=== PATIENT | female | born 1985 | race Caucasian/White ===

== ENCOUNTER 2017-02-09 02:54 | Inpatient (IN) | payer OTHER ==
[2017-02-09] MEDS ORDERED: Sodium Citrate/Citric Acid* 15 ML UDC ONE (03:16)
[2017-02-09] MEDS ORDERED: ceFOXitin 2 GM IVPREMIX* 2 GM/50 ML BAG ONE (03:16)
[2017-02-09 03:23] LABS: Hematocrit 36 % (35-47); Hemoglobin 12.6 g/dl (12.0-16.0); Mean Corpuscular HGB Conc 35 g/dl (31-36); Mean Corpuscular Hemoglobin 30 pg (27-31); Mean Corpuscular Volume 86 fL (80-97); Mean Platelet Volume 9 um3 (7.4-10.4); Red Blood Count 4.24 10^6/ul (4.0-5.4); Red Cell Distribution Width 13 % (10.5-15); White Blood Count 12.8 10^3/ul (3.5-10.8)
[2017-02-09] MEDS ORDERED: Acetaminophen IV 1GM/100ML * 100 ML IVPB ONE (05:09)
[2017-02-09] MEDS ORDERED: oxyCODONE TAB* 5 MG TAB PO PRN ×2 (05:09→05:12)
[2017-02-09] MEDS ORDERED: PROCHLORPERAZINE INJ 5 MG/ML 2 ML VIAL IV PRN ×2 (05:09→05:12)
[2017-02-09] MEDS ORDERED: fentaNYL* 50 MCG/ML 2 ML VIAL (100 MCG VIAL) IV PRN (05:09)
[2017-02-09] MEDS ORDERED: Famotidine IV* 10 MG/ML 2 ML (20 mg) IV SLOW PU PRN (05:11)
[2017-02-09] MEDS ORDERED: Zolpidem TAB* 5 MG PO PRN (05:12)
[2017-02-09] MEDS ORDERED: Dibucaine 1% 28.35 GM TUBE PR PRN (05:12)
[2017-02-09] MEDS ORDERED: Glycerin ADULT SUPP PR PRN (05:12)
[2017-02-09] MEDS ORDERED: Witch Hazel PAD* JAR TOPICAL PRN (05:12)
[2017-02-09] MEDS ORDERED: Nalbuphine* 20 MG/ML 1 ML VIAL IV PRN (05:12)
[2017-02-09] MEDS ORDERED: Naloxone* 0.4 MG/ML 1 ML VIAL IV PRN (05:12)
[2017-02-09] MEDS ORDERED: Ondansetron INJ* 2 MG/ML VIAL IV PRN (05:12)
[2017-02-09] MEDS ORDERED: Famotidine IV* 10 MG/ML 2 ML (20 mg) ONE (05:14)
[2017-02-09] MEDS ORDERED: Ketorolac INJ* 30 MG/ML 1 ML VIAL ONE (05:14)
[2017-02-09] MEDS ORDERED: Acetaminophen IV 1GM/100ML * 100 ML ONE (05:15)
[2017-02-09] MEDS ORDERED: Ketorolac INJ* 30 MG/ML 1 ML VIAL IV SCH (06:00)
[2017-02-09] MEDS ORDERED: Oxytocin in LR* 20 UNITS/1,000 ML BAG IVPB SCH (06:00)
[2017-02-09] MEDS ORDERED: diPHENhydraMINE IV* 50 MG/ML 1 ml VIAL (BENADRYL) ONE (06:47)
[2017-02-09] MEDS: Docusate CAP* 100 MG PO SCH ×3 (09:11→19:42)
[2017-02-09] MEDS: Simethicone CHEW TAB* 80 MG PO SCH ×4 (09:11→19:42)
[2017-02-09] MEDS: diPHENhydraMINE PO* 25 MG PO PRN ×2 (12:24→19:41)
[2017-02-09] MEDS: Ketorolac INJ* 30 MG/ML 1 ML VIAL IV SCH ×3 (13:24→21:36)
[2017-02-09] MEDS: Acetaminophen TAB* 325 MG PO SCH ×3 (13:25→21:36)
[2017-02-09] MEDS ORDERED: oxyCODONE/Acetamin 5/325 MG* TAB PO PRN (21:12)
[2017-02-09] MEDS ORDERED: Acetaminophen TAB* 325 MG PO PRN (21:12)
--- NOTE | 2017-02-09 23:33 | OP ---
DATE OF OPERATION: 02/09/17 - ROOM [facility] DATE OF : 81 SURGEON: Tyson Patel MD SENIOR RISK ANALYST: Juan Carlos Zavala MD ANESTHESIOLOGIST: Adeel Peralta MD ANESTHESIA: Spinal PRE-OP DIAGNOSIS: Previous section and desires permanent sterilization. POST-OP DIAGNOSIS: Previous section and desires permanent sterilization. OPERATIVE PROCEDURE: Low-transverse section and bilateral tubal ligation. ESTIMATED BLOOD LOSS: 600 cc. FINDINGS: Include a viable male, Apgars 9 and 9, and weight was 8 pounds and 12 ounces. Normal-appearing uterus, fallopian tubes, and ovaries. DESCRIPTION OF PROCEDURE: The patient identified and procedure identified as a low-transverse section. The patient was taken to the operating room, prepped and draped in the usual fashion in the left lateral recumbent position under spinal anesthesia. A Pfannenstiel incision was made through the old incision and carried down through fat, fascia, and peritoneum. A transverse incision was made in the lower uterine segment and extended laterally using the bandage scissors. The infant was delivered through the incision with ease. Nuchal cord x1 was noted. The cord was doubly clamped and cut and the was handed to the awaiting criminal attorney. Cord blood was obtained. Placenta delivered spontaneously. The uterine incision was closed using 0 Polysorb in a running fashion. A second layer was used to imbricate the first layer. The right fallopian tube was grasped at the fimbriated ends and ligated x2 and the fimbriae was excised. The same procedure was carried out on the left after following it out to its fimbriated end. Good hemostasis was verified. The uterus was placed back into the abdominal cavity. The incision sites were inspected and found to be hemostatic. The peritoneum was closed using 3-0 Polysorb in a running fashion. Good hemostasis was achieved in the subrectus layers. The fascia was closed using 0 Polysorb in a running fashion. Hemostasis was achieved in the subcu. Copious irrigation was utilized and suctioned out and the skin was closed with 4-0 Monocryl in a subcuticular fashion. All sponge and instrument counts were correct and the patient returned to the recovery room in stable condition. CC: Juan Carlos Zavala MD* [id number]/[facility] #: [id number] [facility]
[2017-02-10] MEDS: oxyCODONE/Acetamin 5/325 MG* TAB PO PRN ×2 (05:45→18:29)
[2017-02-10] MEDS ORDERED: diPHENhydraMINE IV* 50 MG/ML 1 ml VIAL (BENADRYL) IV ONE (06:45)
[2017-02-10] MEDS ORDERED: Ketorolac INJ* 30 MG/ML 1 ML VIAL IV ONE (07:00)
[2017-02-10 08:17] LABS: Hematocrit 32 % (35-47); Hemoglobin 10.8 g/dl (12.0-16.0); Mean Corpuscular HGB Conc 34 g/dl (31-36); Mean Corpuscular Hemoglobin 30 pg (27-31); Mean Corpuscular Volume 88 fL (80-97); Mean Platelet Volume 9 um3 (7.4-10.4); Red Blood Count 3.61 10^6/ul (4.0-5.4); Red Cell Distribution Width 13 % (10.5-15); White Blood Count 15.2 10^3/ul (3.5-10.8)
[2017-02-10] MEDS: Simethicone CHEW TAB* 80 MG PO SCH ×4 (08:41→21:20)
[2017-02-10] MEDS: Docusate CAP* 100 MG PO SCH ×3 (08:41→21:20)
[2017-02-10] MEDS ORDERED: Ferrous Gluconate TAB* 324 MG TAB PO SCH (09:00)
[2017-02-10] MEDS: Ibuprofen TAB* 600 MG PO PRN ×2 (12:49→18:29)
[2017-02-11] MEDS: oxyCODONE/Acetamin 5/325 MG* TAB PO PRN ×2 (01:16→10:09)
[2017-02-11] MEDS: Ibuprofen TAB* 600 MG PO PRN ×2 (01:18→07:59)
[2017-02-11] MEDS: Docusate CAP* 100 MG PO SCH (07:58)
[2017-02-11] MEDS: Simethicone CHEW TAB* 80 MG PO SCH (07:58)
[2017-02-11 08:05] VITALS: BP 121/72
== END 2017-02-11 11:40 | disposition home or self-care (01) | DRG 540 ==
LOC: MCHOBOUT 02:54 → MCHOB 03:07
PROVIDERS: ADMIT Obstetrics & Gynecology; ATTEND Obstetrics & Gynecology
PROC: 0UB70ZZ Excision of Bilateral Fallopian Tubes, Open Approach (ICD-10-PCS; 2017-02-09)
PROC: 10D00Z1 Extraction of Products of Conception, Low, Open Approach (ICD-10-PCS; principal; 2017-02-09 03:57)
DX: O34.211 Maternal care for low transverse scar from previous cesarean delivery (principal); Z37.0 Single live birth; Z3A.38 38 weeks gestation of pregnancy
CPT/HCPCS: 36415; 85025; 85027; 86850; 86900; 86901; 88302; A9270-GY; J0694; J1200; J1885; J2300

== ENCOUNTER 2017-10-11 08:15 | Emergency (ER) | payer OTHER ==
[2017-10-11 08:33] VITALS: BP 120/68
--- NOTE | 2017-10-11 08:41 | UC ---
Dental HPI - HPI Summary HPI Summary: 3-4 DAYS OF RIGHT UPPER TOOTH PAIN. GETTING WORSE. HAS A KNOWN LARGE CAVITY THAT HAS NOT BEEN FILLED IN 1ST PREMOLAR. EVEN THE AIR MOVING PAST HER TOOTH MAKES IT HURT. CALLED DENTIST AND MADE APPT FOR 2 WEEKS (EARLIEST AVAILABLE). NO FEVER. IS . - History of Current Complaint Chief Complaint: UCDentalProblem Stated Complaint: TOOTH ACHE Time Seen by Provider: 10/11/17 08:39 Hx Obtained From: Patient Hx Last Menstrual Period: April 04 2016. Onset/Duration: Sudden Onset, Lasting Days, Still Present Severity: Moderate Pain Intensity: 8 Pain Scale Used: 0-10 Numeric Aggravating Factor(s): Heat, Cold, Chewing Alleviating Factor(s): OTC Meds - IBUPROFEN - Allergies/Home Medications Allergies/Adverse Reactions: Allergies Allergy/AdvReac Type Severity Reaction Status Date / Time No Known Allergies Allergy Verified 10/11/17 08:29 PMH/Surg Hx/FS Hx/Imm Hx GI/ History: Kidney Stones Other History Of: HIV Negative For: Hepatitis C - Surgical History Surgical History: Yes Surgery Procedure, Year, and Place: 04/04/2008 CYSTO LEFT STENT INSERTION, [facility] [place]. 04/12/2008 ESWL LEFT URETERAL CALCULUS, [facility] [place]. 12/2008 CYSTOSCOPY LEFT URETERAL STENT INSERTION, [facility] [place]. 09/2011 RIGHT URETEROSCOPY, RIGHT STENT, INSERTION, SHOCKWAVE LITHOTRIPSY LEFT RENAL CALCULUS, [facility] [place]. 2012 SKYE MOSS. 2013 LEFT URETERAL STENT, [facility] [place]. 07/26/2014 LEFT SHOCKWAVE LITHOTRIPSY, [facility] [place]. 2014 ISA [facility] [place]. gall bladder removal. 10/2012,SKYE 2014. 2013-URETERAL STENT INSERTION - Family History Known Family History: Positive: Hypertension, Diabetes, Other - kidney stones, leukemia - Social History Alcohol Use: None Substance Use Type: None Smoking Status (MU): Former Smoker Type: Cigarettes Amount Used/How Often: 1/2 PPD FOR ABOUT 5-6 YEARS Have You Smoked in the Last Year: No When Did the Patient Quit Smoking/Using Tobacco: 2010 - Immunization History Most Recent Influenza Vaccination: 08/20/16 Most Recent Tetanus Shot: 2012 Most Recent Pneumonia Vaccination: none Review of Systems Constitutional: Negative ENT: Dental Pain Respiratory: Negative Cardiovascular: Negative Gastrointestinal: Negative All Other Systems Reviewed And Are Negative: Yes Physical Exam Triage Information Reviewed: Yes Appearance: Well-Appearing, Well-Nourished, Pain Distress - MILD Vital Signs: Initial Vital Signs Temp 97.8 F 10/11/17 08:30 Pulse 69 10/11/17 08:30 Resp 16 10/11/17 08:30 BP 120/68 10/11/17 08:30 Pulse Ox 99 10/11/17 08:30 Vital Signs Reviewed: Yes Eyes: Positive: Conjunctiva Clear ENT: Positive: Hearing grossly normal, Pharynx normal Dental: Positive: Percussion Tenderness @ - RIGHT UPPER 1ST PREMOLAR, Gross Decay/Caries @ - RIGHT UPPER 1ST PREMOLAR Neck: Positive: Supple, Nontender, No Lymphadenopathy Respiratory Exam: Normal Cardiovascular Exam: Normal Abdomen Description: Positive: Soft Musculoskeletal: Positive: No Edema Neurological: Positive: Alert Psychological: Positive: Age Appropriate Behavior Skin: Negative: rashes Dental Complaint Course/Dx - Differential Dx/Diagnosis Provider Diagnoses: DENTAL INFECTION - RIGHT UPPER 1ST PREMOLAR Discharge - Discharge Plan Condition: Stable Disposition: HOME Prescriptions: Chlorhexidine MW 0.12% 473ML* [Peridex Mouth Wash 0.12%*] 15 ml SWISH SPIT BID # 1 bottle Ibuprofen TAB* [Motrin TAB* 600 MG] 1 tab PO Q6H PRN #30 tab PRN Reason: Pain Penicillin VK 500 MG TAB(NF) [Penicillin VK 500 mg Tab] 500 mg PO TID #30 tab Patient Education Materials: Toothache (ED) Referrals: Nadja Ramos MD [Primary Care Provider] - If Needed Additional Instructions: KEEP YOUR DENTAL APPT IN 2 WEEKS.
== END 2017-10-11 08:57 | disposition home or self-care (01) ==
LOC: UCEAST 08:15
DX: K04.7 Periapical abscess without sinus (principal); Z87.442 Personal history of urinary calculi; Z87.891 Personal history of nicotine dependence
CPT/HCPCS: 99212; G0463

== ENCOUNTER 2018-10-03 10:48 | Emergency (ER) | payer OTHER ==
[2018-10-03 11:42] VITALS: BP 109/77
--- NOTE | 2018-10-03 12:14 | UC ---
Dental HPI - HPI Summary HPI Summary: 33 y/o female presents to the urgent care c/o fracture molar in her left upper jaw about 1.5week. Now w/ some swelling and infection. Pt also states nasaql congestion w/ clear nasal discharge for the past 2 days which has exacerbated the dental pain w/ sinus pressure. Pt states she has an appt w/ [facility] in 2 weeks for extraction and treatment of her molar. However this morning pain is worse 6/10 w/ severe nausea. Pt took Ibuprofen PO 800mg around 0930AM today. She still breast feeding her 2 y/o son. Pt denies fever, trismus, BUENO, SOB, chest pain, abdominal pain, N/V/D. - History of Current Complaint Chief Complaint: UCDentalProblem Stated Complaint: TOOTHACHE Time Seen by Provider: 10/03/18 12:08 Hx Obtained From: Patient Hx Last Menstrual Period: 09/16/18 ?: No Onset/Duration: Gradual Onset, Lasting Weeks - 1 week, Still Present, Worse Since - today Severity: Moderate Pain Intensity: 6 Pain Scale Used: 0-10 Numeric Aggravating Factor(s): Chewing Alleviating Factor(s): OTC Meds Related History: Swelling, Other - fracture molar - Allergies/Home Medications Allergies/Adverse Reactions: Allergies Allergy/AdvReac Type Severity Reaction Status Date / Time No Known Allergies Allergy Verified 10/03/18 11:42 PMH/Surg Hx/FS Hx/Imm Hx Previously Healthy: Yes Respiratory History: Asthma - as a child Other History Of: HIV Negative For: Hepatitis C - Surgical History Surgical History: Yes Surgery Procedure, Year, and Place: 04/04/2008 CYSTO LEFT STENT INSERTION, [facility] [place]. 04/12/2008 ESWL LEFT URETERAL CALCULUS, [facility] [place]. 12/2008 CYSTOSCOPY LEFT URETERAL STENT INSERTION, [facility] [place]. 09/2011 RIGHT URETEROSCOPY, RIGHT STENT, INSERTION, SHOCKWAVE LITHOTRIPSY LEFT RENAL CALCULUS, [facility] [place]. 2012 SKYE MOSS. 2013 LEFT URETERAL STENT, [facility] [place]. 07/26/2014 LEFT SHOCKWAVE LITHOTRIPSY, [facility] [place]. 2014 ISA [facility] [place]. gall bladder removal. 10/2012,SKYE 2014. 2013-URETERAL STENT INSERTION - Family History Known Family History: Positive: Hypertension, Diabetes, Other - kidney stones, leukemia - Social History Occupation: Employed Full-time Lives: With Family Alcohol Use: None Substance Use Type: None Smoking Status (MU): Former Smoker Type: Cigarettes Amount Used/How Often: 1/2 PPD FOR ABOUT 5-6 YEARS Have You Smoked in the Last Year: No When Did the Patient Quit Smoking/Using Tobacco: 2010 - Immunization History Most Recent Influenza Vaccination: 08/20/16 Most Recent Tetanus Shot: 2012 Most Recent Pneumonia Vaccination: none Review of Systems All Other Systems Reviewed And Are Negative: Yes Constitutional: Positive: Negative Skin: Positive: Negative Eyes: Positive: Negative ENT: Positive: Dental Pain - left upper jaw w/ fracture molar and swelling, Nasal Discharge - clear, Sinus Congestion Respiratory: Positive: Negative Cardiovascular: Positive: Negative Gastrointestinal: Positive: Negative Genitourinary: Positive: Negative Motor: Positive: Negative Neurovascular: Positive: Negative Musculoskeletal: Positive: Negative Neurological: Positive: Negative Psychological: Positive: Negative Is Patient Immunocompromised?: No Physical Exam - Summary Physical Exam Summary: Vital Signs Reviewed: Yes General: Well-Appearing, Well-Nourished female sitting in the examining table w/ o any respiratory or pain distress Eyes: Positive: Conjunctiva Clear - PERRLA, EOMI, ENT: Positive: Normal ENT inspection, Hearing grossly normal, Pharynx normal, TMs normal - B/L external ear canals clear,. Negative: Tonsillar swelling, Tonsillar exudate, Trismus. Nose edematous and erythemaous nasal mucosa w/ clear nasal discharge Dental: Positive: Gross Decay/Caries w/ fracture molars #12 , Abscess @ - gingival swelling and erythema, tender to percussion above this molar. , Cervical Lymphadenopathy - anterior- Neck: Positive: Supple Respiratory: Positive: Chest non-tender, Lungs clear, Normal breath sounds, No respiratory distress Cardiovascular: Positive: RRR, No Murmur, Pulses Normal, Brisk Capillary Refill Abdomen Description: Positive: Nontender, No Organomegaly, Soft. Negative: CVA Tenderness (R), CVA Tenderness (L) Bowel Sounds: Positive: Present Musculoskeletal: Positive: Strength Intact, ROM Intact, No Edema Neurological Exam: Normal Psychological Exam: Normal Skin Exam: Normal Triage Information Reviewed: Yes Vital Signs: Initial Vital Signs Temp 98.0 F 10/03/18 11:36 Pulse 91 10/03/18 11:36 Resp 18 10/03/18 11:36 BP 109/77 10/03/18 11:36 Pulse Ox 98 10/03/18 11:36 Dental Complaint Course/Dx - Course Course Of Treatment: 33 y/o female presents to the urgent care c/o fracture molar in her left upper jaw about 1.5week. Now w/ some swelling and infection. Pt also states nasaql congestion w/ clear nasal discharge for the past 2 days which has exacerbated the dental pain w/ sinus pressure. Pt states she has an appt w/ [facility] in 2 weeks for extraction and treatment of her molar. However this morning pain is worse 6/10 w/ severe nausea. Pt took Ibuprofen PO 800mg around 0930AM today. She still breast feeding her 2 y/o son. Pt denies fever, trismus, BUENO, SOB, chest pain, abdominal pain, N/V/D. Hx obtained. Pt w/ a dental abscess and fracture molar #12 on examination. Pt w/ severe nausea. Pt givne Zofran PO and Viscous Lidocaine at the clinic by the nurse to alleviate symptoms. pt tolerated well medication and felt better. Pt Rx Amoxicillin PO and Ibuprofen PO for pain and Viscous Lidocaine, also Zofran PO prn to alleviate nausea. Pt strongly advised to f/u with Dentist as soon as possible further evaluation and treatment. Pt understood and agreed with plan of care. Left the clinic ambulating. - Differential Dx/Diagnosis Differential Diagnosis/Dx: Dental Abscess, Dental Caries, Fractured Tooth, Gingivitis, Odontogenic Pain, Peridontic Disease, Peritonsillar Abcess, Tonsillitis Provider Diagnosis: Dental abscess, Pain, dental, Fracture, tooth Discharge - Sign-Out/Discharge Documenting (check all that apply): Patient Departure - D/c home All imaging exams completed and their final reports reviewed: No Studies - Discharge Plan Condition: Stable Disposition: HOME Prescriptions: Amoxicillin PO (*) [Amoxicillin 875 MG (*)] 875 mg PO BID #20 tab Ibuprofen TAB* [Motrin TAB* 800 MG] 800 mg PO Q6H PRN #30 tab PRN Reason: dental pain Lidocaine 2% VISCOUS* [Xylocaine 2% Viscous*] 15 ml SWISH SPIT Q6H PRN #1 btl PRN Reason: dental pain Ondansetron ODT TAB* [Zofran 4 MG Odt TAB*] 4 mg PO Q6H PRN #12 tab.odt PRN Reason: nausea and vomiting Patient Education Materials: Dental Abscess (ED) Referrals: Nadja Ramos MD [Primary Care Provider] - 2 Days Additional Instructions: 1-Please take full course of antibiotic to avoid resistance. 2- Take Ibuprofen PO q6-8hrs prn as instructed after meals to alleviate pain and swelling. TAke the viscous lidocaine as directed to alleviate pain 3- F/u with your Dentist or [facility] provided as soon as possible for further treatment. 4- If symptoms do not improve or worsen please return to the urgent care or f/u with your PCP 2-3 days for further evaluation and treatment - Billing Disposition and Condition Condition: STABLE Disposition: Home
[2018-10-03] MEDS ORDERED: Ondansetron ODT TAB* 4 MG PO ONE (12:24)
[2018-10-03] MEDS ORDERED: Lidocaine 2% VISCOUS* 15 ML UDC SWISH SPIT ONE (12:24)
== END 2018-10-03 12:42 | disposition home or self-care (01) ==
LOC: UCEAST 10:48
DX: S02.5XXA Fracture of tooth (traumatic), initial encounter for closed fracture (principal); K08.89 Other specified disorders of teeth and supporting structures; K04.7 Periapical abscess without sinus; R09.81 Nasal congestion; Z87.891 Personal history of nicotine dependence; X58.XXXA Exposure to other specified factors, initial encounter; Y92.9 Unspecified place or not applicable
CPT/HCPCS: 99212; A9270-GY; G0463

== ENCOUNTER 2020-10-03 05:49 | Observation (INO) ==
[2020-10-03] MEDS ORDERED: Lactated Ringers 1000 ml BAG 1,000 ML IV SCH ×2 (06:00→11:00)
[2020-10-03] MEDS ORDERED: Buffered Lidocaine 1% SYRIN 1 ml INTRADERM ONE ×2 (06:00→06:19)
[2020-10-03] MEDS ORDERED: Lidocaine 2% PF 5 ML VIAL ONE ×2 (06:55→08:29)
[2020-10-03] MEDS ORDERED: Ondansetron 4 mg VIAL 2 MG/ML 2 ml VIAL ONE ×2 (06:55→08:26)
[2020-10-03] MEDS ORDERED: Dexamethasone IV 4 MG/ML VIAL 1 ml VIAL ONE (06:55)
[2020-10-03] MEDS ORDERED: Propofol 10 MG/ML 20 ML BTL ONE (06:55)
[2020-10-03] MEDS ORDERED: DiMENhydriNATE IV 50 mg/ml 1 ml VIAL ONE (06:56)
[2020-10-03] MEDS ORDERED: Midazolam 2 mg/2 ml VIAL 1 mg/ml 2 ml VIAL (2 mg) ONE (07:05)
[2020-10-03] MEDS ORDERED: fentaNYL 250 mcg/5 ml 50 MCG/ML 5 ml VIAL (250 MCG) ONE (07:05)
[2020-10-03] MEDS ORDERED: Rocuronium 50 mg VIAL 10 mg/ml 5 ml VIAL (50 mg) ONE (07:05)
[2020-10-03] MEDS ORDERED: Bupivacaine 0.5% SDV PF 30ML VIAL ONE (07:09)
[2020-10-03] MEDS ORDERED: ceFAZolin VIAL VIAL ONE (08:04)
[2020-10-03] MEDS ORDERED: DiMENhydriNATE IV 50 mg/ml 1 ml VIAL IV PUSH PRN (08:22)
[2020-10-03] MEDS ORDERED: Naloxone 0.4 mg VIAL 0.4 mg/ml 1 ml VIAL IV PRN (08:22)
[2020-10-03] MEDS ORDERED: Ondansetron 4 mg VIAL 2 MG/ML 2 ml VIAL IV PRN ×2 (08:22→10:14)
[2020-10-03] MEDS ORDERED: HYDROmorphone 1 MG/1 ML SYRINGE ONE (08:26)
[2020-10-03] MEDS ORDERED: oxyCODONE/Acetamin 5/325 mg TAB ONE ×2 (10:33→10:52)
[2020-10-03] MEDS ORDERED: fentaNYL 100 mcg/2 ml 50 MCG/ML VIAL ONE ×2 (10:33→10:52)
[2020-10-03] MEDS: fentaNYL 100 mcg/2 ml 50 MCG/ML VIAL IV PRN ×4 (10:34→11:25)
[2020-10-03] MEDS: oxyCODONE/Acetamin 5/325 mg TAB PO PRN ×3 (10:34→18:28)
[2020-10-03] MEDS ORDERED: Phenylephrine 40 mcg/mL 10mL (400mcg) SYRINGE ONE (10:43)
[2020-10-03 11:04] LABS: Urine Appearance Cloudy; Urine Bilirubin Negative (Negative); Urine Blood Negative (Negative); Urine Color Yellow; Urine Glucose Negative (Negative); Urine Ketones Negative (Negative); Urine Nitrite Negative (Negative); Urine Protein Negative (Negative); Urine Specific Gravity 1.017 (1.010-1.030); Urine Urobilinogen Negative (Negative)
[2020-10-03] MEDS ORDERED: diPHENhydraMINE 25 mg TAB PO ONE (13:35)
[2020-10-03] MEDS ORDERED: DULoxetine DR 60 mg CAP PO SCH (21:00)
[2020-10-03] MEDS: HYDROmorphone 1 MG/1 ML SYRINGE IV SLOW PU PRN (22:16)
[2020-10-04] MEDS: HYDROmorphone 1 MG/1 ML SYRINGE IV SLOW PU PRN (04:09)
[2020-10-04 10:05] LABS: ABS Eosinophils 0.1 10^3/ul (0-0.6); ABS Lymphocytes 1.3 10^3/ul (1.0-4.8); ABS Monocytes 0.3 10^3/ul (0-0.8); ABS Neutrophils 4.9 10^3/ul (1.5-7.7); Eosinophil % 2.2 %; Hematocrit 33 % (35-47); Hemoglobin 11.7 g/dL (12.0-16.0); Lymphocyte % 19.9 %; Mean Corpuscular HGB Conc 35 g/dL (31-36); Mean Corpuscular Hemoglobin 31 pg (27-31); Mean Corpuscular Volume 87 fL (80-97); Mean Platelet Volume 7.5 fL (7.4-10.4); Platelet Count 203 10^3/uL (150-450); Red Blood Count 3.78 10^6 /uL (3.70-4.87); Red Cell Distribution Width 14 % (10-15); White Blood Count 6.6 10^3/uL (3.5-10.8)
[2020-10-04 11:56] VITALS: BP 104/52
== END 2020-10-04 13:20 | disposition home or self-care (01) ==
LOC: SSU 05:49 → OR 05:49
PROVIDERS: ADMIT Obstetrics & Gynecology; ATTEND Obstetrics & Gynecology